=== PATIENT | female | born 1970 | race Caucasian/White ===

== ENCOUNTER 2017-05-22 21:04 | Inpatient (IN) | payer MEDICAID ==
[~2017-05-22] VITALS: Ht 162.6 cm; Wt 81.7 kg
[~2017-05-22 21:04] MED LIST: AMLO5TAB2 PO; AMOX1TAB12 PO; ATOR20TA9 PO; CEFD300C37 PO; DIVA250T6 PO; LISI-167 PO; LISI40TA PO; LITH300C PO; LORA10TA62 PO; LORA2TAB99 PO; METF500T4 PO; METO25TA35 PO; SULF1TAB24 PO; TRAZ100T15 PO; VENL150C PO
[2017-05-22] MEDS ORDERED: LABETALOL 5MG/ML, 20ML IVPush PRN (22:00)
[2017-05-22] MEDS ORDERED: LABETALOL 5MG/ML, 20ML ONE (22:07)
[2017-05-22 22:20] LABS: DAU SCREEN DISCLAIMER
[2017-05-22 22:23] LABS: HEMATOCRIT 41.6 % (34.6-47.8); HEMOGLOBIN 14.2 g/dL (11.7-16.4); WHITE BLOOD COUNT 9.8 x10^3/uL (3.4-10)
[2017-05-22] MEDS ORDERED: ACETAMINOPHEN 650 MG/20.3 ML UDC PO PRN (22:30)
[2017-05-22] MEDS ORDERED: morphine SULFATE 10 MG/ML, 1ML IVPush PRN (22:30)
[2017-05-22] MEDS ORDERED: LORazepam 2 MG/ML, 1ML IVPush PRN (22:30)
[2017-05-22] MEDS ORDERED: ONDANSETRON 2MG/ML, 2ML IVPush PRN (22:30)
[2017-05-22 22:31] LABS: BLOOD UREA NITROGEN 30 mg/dL (7-18)
[2017-05-22 22:38] LABS: ASPARTATE AMINO TRANSFERASE 31 U/L (15-37)
[2017-05-22 22:41] LABS: IS PT STATUS REG ER OR PRE ER? YES
[2017-05-22] MEDS ORDERED: ASPIRIN 325 MG TABLET PO ONE (23:00)
[2017-05-22 23:35] VITALS: BP 182/110
[2017-05-22] MEDS: LABETALOL 5MG/ML, 20ML IV PRN (23:57)
[2017-05-22] MEDS: FAMOTIDINE 20 MG/2 ML IVPush SCH (23:57)
[2017-05-23] VITALS (8 sets, daily range): BP systolic 146–199; BP diastolic 84–116
[2017-05-23] MEDS: LABETALOL 5MG/ML, 20ML IV PRN ×3 (00:44→21:14)
[2017-05-23] MEDS: ASPIRIN 325 MG TABLET EC PO SCH (05:50)
[2017-05-23 08:35] LABS: IS PT STATUS REG ER OR PRE ER? NO
[2017-05-23] MEDS ORDERED: POTASSIUM CHLORIDE 20 MEQ TAB.ER.PRT PO ONE (09:00)
[2017-05-23] MEDS: INSULIN ASPART 100 UNITS/ML, PEN SQ-INSULIN SCH ×4 (10:15→21:13)
[2017-05-23] MEDS ORDERED: GADOBUTROL 10 MMOL/10 ML VIAL ONE (11:14)
[2017-05-23] MEDS ORDERED: SODIUM CHLORIDE 0.9% 1,000 ML IV SCH (12:00)
[2017-05-23] MEDS: LISINOPRIL 5 MG TABLET PO SCH (12:59)
[2017-05-23 13:29] LABS: IS PT STATUS REG ER OR PRE ER? NO
[2017-05-23] MEDS ORDERED: METOPROLOL TARTRATE 25 MG TABLET PO SCH (18:00)
[2017-05-23] MEDS: HEPARIN 5,000 UNITS/ML, 1ML SQ SCH ×2 (18:11→22:00)
[2017-05-23] MEDS ORDERED: ONDANSETRON 2MG/ML, 2ML IVPush PRN (19:00)
[2017-05-23] MEDS: ATORVASTATIN 80 MG TABLET PO SCH (21:12)
[2017-05-23] MEDS: FAMOTIDINE 20 MG/2 ML IVPush SCH (21:13)
[2017-05-24] MEDS: LABETALOL 5MG/ML, 20ML IV PRN ×2 (01:10→01:54)
[2017-05-24 01:14] VITALS: BP_SYST 191; BP_SYST 209; BP_DIAS 107; BP_DIAS 114
[2017-05-24 01:53] VITALS: BP 166/103
[2017-05-24 05:11] LABS: HEMATOCRIT 40.3 % (34.6-47.8); HEMOGLOBIN 13.7 g/dL (11.7-16.4); WHITE BLOOD COUNT 9.2 x10^3/uL (3.4-10)
[2017-05-24] MEDS: ASPIRIN 325 MG TABLET EC PO SCH (05:19)
[2017-05-24] MEDS: HEPARIN 5,000 UNITS/ML, 1ML SQ SCH ×3 (05:19→20:45)
[2017-05-24 05:21] LABS: ASPARTATE AMINO TRANSFERASE 21 U/L (15-37); BLOOD UREA NITROGEN 23 mg/dL (7-18)
[2017-05-24 07:32] VITALS: BP 168/109
[2017-05-24] MEDS: LORazepam 2 MG/ML, 1ML IVPush PRN ×3 (08:35→20:44)
[2017-05-24] MEDS: LISINOPRIL 5 MG TABLET PO SCH (08:36)
[2017-05-24] MEDS: METOPROLOL TARTRATE 25 MG TABLET PO SCH ×2 (08:36→16:26)
[2017-05-24] MEDS: INSULIN ASPART 100 UNITS/ML, PEN SQ-INSULIN SCH ×4 (09:17→20:45)
[2017-05-24 12:14] VITALS: BP 174/107
[2017-05-24] MEDS ORDERED: ACETAMINOPHEN 650 MG/20.3 ML UDC PO PRN (19:30)
[2017-05-24] MEDS ORDERED: ONDANSETRON 2MG/ML, 2ML IVPush PRN (19:30)
[2017-05-24 20:00] VITALS: BP 179/117
[2017-05-24 20:20] VITALS: BP 142/59
[2017-05-24] MEDS: FAMOTIDINE 20 MG/2 ML IVPush SCH (20:44)
[2017-05-24] MEDS: ATORVASTATIN 80 MG TABLET PO SCH (20:44)
[2017-05-25 05:34] LABS: BLOOD UREA NITROGEN 16 mg/dL (7-18)
[2017-05-25 06:45] VITALS: BP 192/131
[2017-05-25 07:20] VITALS: BP 178/133
[2017-05-25 07:25] VITALS: BP 203/131
[2017-05-25] MEDS: ASPIRIN 325 MG TABLET EC PO SCH (08:12)
[2017-05-25] MEDS: METOPROLOL TARTRATE 25 MG TABLET PO SCH (08:12)
[2017-05-25] MEDS: HEPARIN 5,000 UNITS/ML, 1ML SQ SCH (08:12)
[2017-05-25] MEDS: INSULIN ASPART 100 UNITS/ML, PEN SQ-INSULIN SCH (08:12)
[2017-05-25] MEDS ORDERED: LISINOPRIL 10 MG TABLET PO SCH (09:00)
[2017-05-25] MEDS: LORazepam 2 MG/ML, 1ML IVPush PRN (09:19)
[2017-05-27 19:08] LABS: ANA SCREEN NEGATIVE (Negative)
== END 2017-05-25 12:16 | disposition left against medical advice (07) | DRG 65 ==
LOC: ED 22:23 → EDIP 22:25 → 4EST 23:27
PROVIDERS: ADMIT Family Medicine; ATTEND Family Medicine
DX: I63.512 Cerebral infarction due to unspecified occlusion or stenosis of left middle cerebral artery (principal); E44.0 Moderate protein-calorie malnutrition; E11.21 Type 2 diabetes mellitus with diabetic nephropathy; E11.40 Type 2 diabetes mellitus with diabetic neuropathy, unspecified; E11.22 Type 2 diabetes mellitus with diabetic chronic kidney disease; F15.20 Other stimulant dependence, uncomplicated; I16.1 Hypertensive emergency; E11.65 Type 2 diabetes mellitus with hyperglycemia; E78.5 Hyperlipidemia, unspecified; E87.6 Hypokalemia; F17.200 Nicotine dependence, unspecified, uncomplicated; I12.9 Hypertensive chronic kidney disease with stage 1 through stage 4 chronic kidney disease, or unspecified chronic kidney disease; I70.0 Atherosclerosis of aorta; J32.0 Chronic maxillary sinusitis; F32.9 Major depressive disorder, single episode, unspecified; N18.3 Chronic kidney disease, stage 3 (moderate); R29.701 NIHSS score 1; Z86.73 Personal history of transient ischemic attack (TIA), and cerebral infarction without residual deficits; Z90.710 Acquired absence of both cervix and uterus; Z68.30 Body mass index [BMI] 30.0-30.9, adult; Z91.14 Patient's other noncompliance with medication regimen; Z80.9 Family history of malignant neoplasm, unspecified
CPT/HCPCS: 36415; 70450; 70544; 70547; 70551; 71010; 80048; 80053; 80061; 80307; 81241; 82962; 83036; 83090; 84484; 85025; 85300; 85303; 85306; 85651; 86038; 86140; 86147; 93005; 93306; 93880; 96374; A9585; J1644; J1815; 92523-GN; G0479; J2060; J7030; S0028

== ENCOUNTER 2017-05-25 13:47 | Emergency (ER) | payer MEDICAID ==
[2017-05-25 14:37] VITALS: BP 176/112
== END 2017-05-25 16:09 | disposition home or self-care (01) ==
LOC: ED 14:09
DX: F10.220 Alcohol dependence with intoxication, uncomplicated (principal); I10 Essential (primary) hypertension; F32.9 Major depressive disorder, single episode, unspecified; E11.9 Type 2 diabetes mellitus without complications; Z86.73 Personal history of transient ischemic attack (TIA), and cerebral infarction without residual deficits
CPT/HCPCS: 99283

== ENCOUNTER 2017-05-29 17:45 | Inpatient (IN) | payer MEDICAID ==
[~2017-05-29] VITALS: Ht 162.6 cm; Wt 75.0 kg
[2017-05-29] MEDS ORDERED: SODIUM CHLORIDE 0.9% 1,000ML IVBOLUS ONE (18:00)
[2017-05-29] MEDS ORDERED: ASPIRIN 81 MG TABLET CHEW PO ONE ×2 (18:00→19:00)
[2017-05-29] MEDS ORDERED: SODIUM CHLORIDE FLUSH 10ML SYR IVF ONE ×2 (18:00→18:30)
[2017-05-29] MEDS ORDERED: LORazepam 1MG TABLET PO ONE (18:00)
[2017-05-29 18:25] LABS: HEMATOCRIT 42.9 % (34.6-47.8); HEMOGLOBIN 14.4 g/dL (11.7-16.4)
[2017-05-29] MEDS ORDERED: LABETALOL 5MG/ML, 20ML IVPush ONE (18:30)
[2017-05-29] MEDS ORDERED: NITROGLYCERIN OINT 2%, 1GM TP ONE ×2 (18:30→18:45)
[2017-05-29 18:34] LABS: ASPARTATE AMINO TRANSFERASE 34 U/L (15-37); BLOOD UREA NITROGEN 18 mg/dL (7-18)
[2017-05-29 18:42] LABS: IS PT STATUS REG ER OR PRE ER? YES
[2017-05-29] MEDS ORDERED: LABETALOL 5MG/ML, 20ML ONE (18:45)
[2017-05-29] MEDS ORDERED: ASPIRIN 81 MG TABLET CHEW ONE (18:45)
[2017-05-29] MEDS ORDERED: LORazepam 1MG TABLET ONE (18:53)
[2017-05-29 19:29] LABS: DAU SCREEN DISCLAIMER
[2017-05-29] MEDS ORDERED: SODIUM CHLORIDE 0.9% 1,000 ML IV SCH (20:01)
[2017-05-29] MEDS ORDERED: DEXTROSE 4 GM TAB.CHEW PO PRN (20:30)
[2017-05-29] MEDS ORDERED: hydrALAzine 20 MG/ML, 1ML IVPush PRN (20:30)
[2017-05-29] MEDS ORDERED: DEXTROSE 50%, 50ML SYRINGE IVPush PRN (20:30)
[2017-05-29] MEDS ORDERED: ACETAMINOPHEN 325 MG TABLET PO PRN (20:30)
[2017-05-29] MEDS ORDERED: LORazepam 1MG TABLET PO PRN (20:30)
[2017-05-29] MEDS ORDERED: NITROGLYCERIN 0.4 MG BOTTLE (25 TABS) SL PRN (20:30)
[2017-05-29] MEDS ORDERED: NICOTINE 21 MG/24 HR PATCH.TD24 TD SCH (20:30)
[2017-05-29] MEDS ORDERED: ONDANSETRON 2MG/ML, 2ML IVPush PRN (20:30)
[2017-05-29] MEDS ORDERED: GLUCAGON 1 MG IM PRN (20:30)
[2017-05-29] MEDS ORDERED: ENALAPRILAT 1.25 MG/ML, 2ML IVPush PRN (20:30)
[2017-05-29 21:00] VITALS: BP 164/91
[2017-05-29] MEDS ORDERED: SODIUM CHLORIDE FLUSH 10ML SYR IVF SCH (21:00)
[2017-05-29] MEDS ORDERED: ATORVASTATIN 40 MG TABLET PO SCH (21:00)
[2017-05-29] MEDS ORDERED: HYDR25TA6 PO (21:22)
[2017-05-29] MEDS ORDERED: LISI40TA PO (21:24)
[2017-05-29] MEDS ORDERED: METO50TA3 PO (21:24)
[2017-05-29] MEDS ORDERED: AMLO10TA4 PO (21:25)
[2017-05-29] MEDS ORDERED: METF10002 PO (21:26)
[2017-05-29] MEDS ORDERED: ALPR1TAB2 PO (21:27)
[2017-05-29] MEDS ORDERED: CLON0.1T PO (21:27)
[2017-05-29] MEDS ORDERED: DIVA500T4 PO (21:29)
[2017-05-29] MEDS ORDERED: QUET400T4 PO ×2 (21:29→21:30)
[2017-05-29] MEDS ORDERED: TRAZ300T2 PO (21:29)
[2017-05-29] MEDS ORDERED: LABETALOL 100 MG TABLET PO SCH (22:00)
[2017-05-29 23:45] LABS: IS PT STATUS REG ER OR PRE ER? NO
[2017-05-30 02:14] VITALS: BP 162/95
[2017-05-30] MEDS ORDERED: ASPIRIN 325 MG TABLET EC PO SCH (06:00)
[2017-05-30 06:16] LABS: ASPARTATE AMINO TRANSFERASE 30 U/L (15-37); BLOOD UREA NITROGEN 22 mg/dL (7-18)
[2017-05-30 06:18] LABS: IS PT STATUS REG ER OR PRE ER? NO
[2017-05-30 06:45] LABS: HEMATOCRIT 38.6 % (34.6-47.8); WHITE BLOOD COUNT 9.2 x10^3/uL (3.4-10)
== END 2017-05-30 08:00 | disposition left against medical advice (07) | DRG 281 ==
LOC: SUATTDRO 19:46 → ED 19:57 → EDIP 21:06 → 5SO 21:07
PROVIDERS: ADMIT Hospitalist; ATTEND Hospitalist
DX: I21.4 Non-ST elevation (NSTEMI) myocardial infarction (principal); I16.9 Hypertensive crisis, unspecified; N17.9 Acute kidney failure, unspecified; E11.65 Type 2 diabetes mellitus with hyperglycemia; I11.0 Hypertensive heart disease with heart failure; I50.32 Chronic diastolic (congestive) heart failure; Z53.21 Procedure and treatment not carried out due to patient leaving prior to being seen by health care provider; F15.90 Other stimulant use, unspecified, uncomplicated; F17.210 Nicotine dependence, cigarettes, uncomplicated; Z79.82 Long term (current) use of aspirin; Z86.73 Personal history of transient ischemic attack (TIA), and cerebral infarction without residual deficits; Z91.19 Patient's noncompliance with other medical treatment and regimen
CPT/HCPCS: 36415; 70450; 71010; 80053; 80061; 80307; 83735; 84100; 84443; 84484; 84703; 85025; 85610; 93005; 96361; 96374; G0479; J7030

== ENCOUNTER 2017-06-06 23:30 | Emergency (ER) | payer MEDICAID ==
[~2017-06-06] VITALS: Ht 167.6 cm; Wt 79.3 kg
[~2017-06-06 23:30] MED LIST changes: +ALPR1TAB2 PO; +AMLO10TA4 PO; +CLON0.1T PO; +DIVA500T4 PO; +HYDR25TA6 PO; +METF10002 PO; +METO50TA3 PO; +QUET400T4 PO; +TRAZ300T2 PO
[2017-06-06 23:32] VITALS: BP 191/114
== END 2017-06-06 23:42 | disposition left against medical advice (07) ==
LOC: ED 23:36
DX: I10 Essential (primary) hypertension (principal); Z53.21 Procedure and treatment not carried out due to patient leaving prior to being seen by health care provider

== ENCOUNTER 2017-06-16 08:33 | Inpatient (IN) | payer MEDICAID ==
[2017-06-16] VITALS (9 sets, daily range): BP systolic 131–204; BP diastolic 79–131
[~2017-06-16] VITALS: Ht 165.1 cm; Wt 79.1 kg
[~2017-06-16 08:33] MED LIST changes: -METO50TA3 PO; +METO50TA6 PO
[2017-06-16] MEDS ORDERED: ASPIRIN 81 MG TABLET CHEW PO ONE (09:30)
[2017-06-16] MEDS ORDERED: LABETALOL 5MG/ML, 20ML IVPush ONE (09:30)
[2017-06-16] MEDS ORDERED: SODIUM CHLORIDE FLUSH 10ML SYR IVF ONE (09:30)
[2017-06-16 09:36] LABS: HEMATOCRIT 43.3 % (34.6-47.8); HEMOGLOBIN 14.4 g/dL (11.7-16.4); WHITE BLOOD COUNT 8.6 x10^3/uL (3.4-10)
[2017-06-16] MEDS ORDERED: LABETALOL 5MG/ML, 20ML ONE (09:43)
[2017-06-16] MEDS ORDERED: ASPIRIN 81 MG TABLET CHEW ONE (09:43)
[2017-06-16 09:49] LABS: BLOOD UREA NITROGEN 10 mg/dL (7-18)
[2017-06-16 09:54] LABS: IS PT STATUS REG ER OR PRE ER? YES
[2017-06-16] MEDS ORDERED: SODIUM CHLORIDE FLUSH 10ML SYR IVF PRN (11:00)
[2017-06-16] MEDS ORDERED: FLU VACC QS2017-18 (36MOS+) UP/PF 0.5 ML IM-VACC ONE (12:00)
[2017-06-16] MEDS: hydrALAzine 20 MG/ML, 1ML IV PRN (14:58)
[2017-06-16] MEDS ORDERED: LABETALOL 5MG/ML, 20ML IVPush PRN (17:00)
[2017-06-16] MEDS ORDERED: ONDANSETRON 2MG/ML, 2ML IVPush PRN (17:00)
[2017-06-16] MEDS: CARVEDILOL 25 MG TABLET PO SCH (17:11)
[2017-06-16] MEDS: ACETAMINOPHEN 325 MG TABLET PO PRN (17:11)
[2017-06-16] MEDS: LORazepam 1MG TABLET PO PRN (17:11)
[2017-06-16 17:43] LABS: IS PT STATUS REG ER OR PRE ER? NO
[2017-06-16] MEDS: INSULIN ASPART 100 UNITS/ML, PEN SQ-INSULIN SCH ×2 (18:04→20:18)
[2017-06-16] MEDS ORDERED: NITROGLYCERIN 0.4 MG BOTTLE (25 TABS) SL PRN (18:30)
[2017-06-16] MEDS ORDERED: NICOTINE 21 MG/24 HR PATCH.TD24 TD ONE (18:30)
[2017-06-16] MEDS: LISINOPRIL 20 MG TABLET PO SCH (20:12)
[2017-06-16] MEDS: OXYcodone IR 5MG TABLET PO PRN (20:12)
[2017-06-16] MEDS: MINERA CRM, 60GM TP SCH (20:19)
[2017-06-16 22:48] LABS: IS PT STATUS REG ER OR PRE ER? NO
[2017-06-17 01:49] VITALS: BP 144/90
[2017-06-17] MEDS: OXYcodone IR 5MG TABLET PO PRN ×4 (01:54→20:26)
[2017-06-17] MEDS: CARVEDILOL 25 MG TABLET PO SCH ×2 (06:28→17:00)
[2017-06-17 08:19] VITALS: BP 156/86
[2017-06-17] MEDS: LISINOPRIL 20 MG TABLET PO SCH ×2 (08:21→20:26)
[2017-06-17] MEDS: INSULIN ASPART 100 UNITS/ML, PEN SQ-INSULIN SCH ×4 (08:21→20:34)
[2017-06-17] MEDS: MINERA CRM, 60GM TP SCH ×2 (08:30→20:25)
[2017-06-17 13:45] VITALS: BP 137/86
[2017-06-17 19:11] VITALS: BP 170/108
[2017-06-17 20:30] VITALS: BP 154/69
[2017-06-18] VITALS (12 sets, daily range): BP systolic 133–189; BP diastolic 81–124
[2017-06-18] MEDS: hydrALAzine 20 MG/ML, 1ML IV PRN ×2 (00:46→12:35)
[2017-06-18] MEDS: OXYcodone IR 5MG TABLET PO PRN ×4 (02:02→21:46)
[2017-06-18] MEDS: CARVEDILOL 25 MG TABLET PO SCH ×2 (06:19→16:27)
[2017-06-18] MEDS: LISINOPRIL 20 MG TABLET PO SCH ×2 (08:36→20:27)
[2017-06-18] MEDS: MINERA CRM, 60GM TP SCH ×2 (08:37→20:27)
[2017-06-18] MEDS: INSULIN ASPART 100 UNITS/ML, PEN SQ-INSULIN SCH ×4 (08:44→20:28)
[2017-06-18] MEDS: ACETAMINOPHEN 325 MG TABLET PO PRN (12:07)
[2017-06-18] MEDS ORDERED: LABETALOL 5MG/ML, 20ML IVPush PRN (17:00)
[2017-06-18] MEDS ORDERED: hydrALAzine 20 MG/ML, 1ML IV PRN (18:00)
[2017-06-18] MEDS: LORazepam 1MG TABLET PO PRN (20:27)
[2017-06-19 04:00] VITALS: BP_SYST 163; BP_SYST 165; BP_SYST 169; BP_DIAS 93; BP_DIAS 95; BP_DIAS 98
[2017-06-19] MEDS: CARVEDILOL 25 MG TABLET PO SCH ×2 (05:05→17:02)
[2017-06-19 05:59] LABS: BLOOD UREA NITROGEN 28 mg/dL (7-18)
[2017-06-19 06:04] LABS: ASPARTATE AMINO TRANSFERASE 25 U/L (15-37)
[2017-06-19 08:28] VITALS: BP 146/101
[2017-06-19 08:29] VITALS: BP 153/102
[2017-06-19] MEDS: MINERA CRM, 60GM TP SCH ×2 (09:00→20:39)
[2017-06-19] MEDS: LISINOPRIL 20 MG TABLET PO SCH ×2 (09:15→20:35)
[2017-06-19] MEDS: INSULIN ASPART 100 UNITS/ML, PEN SQ-INSULIN SCH ×4 (09:16→20:36)
[2017-06-19 14:14] VITALS: BP 147/91
[2017-06-19] MEDS ORDERED: LISI-170 PO (17:01)
[2017-06-19] MEDS ORDERED: ASPI325T17 PO (17:01)
[2017-06-19] MEDS ORDERED: CARV25TA12 PO (17:01)
[2017-06-19] MEDS: LORazepam 1MG TABLET PO PRN (18:07)
[2017-06-19] MEDS ORDERED: NICOTINE 14MG/24 HR PATCH.TD24 TD SCH (18:30)
[2017-06-19 20:00] VITALS: BP 153/85
[2017-06-19] MEDS: OXYcodone IR 5MG TABLET PO PRN (20:35)
[2017-06-20 04:00] VITALS: BP 155/92
[2017-06-20 06:16] VITALS: BP 155/93
[2017-06-20] MEDS: CARVEDILOL 25 MG TABLET PO SCH (06:17)
[2017-06-20] MEDS: LISINOPRIL 20 MG TABLET PO SCH (08:28)
[2017-06-20] MEDS: INSULIN ASPART 100 UNITS/ML, PEN SQ-INSULIN SCH (08:28)
[2017-06-20] MEDS: MINERA CRM, 60GM TP SCH (08:29)
== END 2017-06-20 10:40 | disposition left against medical advice (07) | DRG 305 ==
LOC: ED 10:48 → EDIP 10:55 → 5SO 11:51
PROVIDERS: ADMIT Internal Medicine; ATTEND Internal Medicine
DX: I16.0 Hypertensive urgency (principal); E11.22 Type 2 diabetes mellitus with diabetic chronic kidney disease; E11.40 Type 2 diabetes mellitus with diabetic neuropathy, unspecified; I42.9 Cardiomyopathy, unspecified; I69.351 Hemiplegia and hemiparesis following cerebral infarction affecting right dominant side; N18.3 Chronic kidney disease, stage 3 (moderate); Z53.21 Procedure and treatment not carried out due to patient leaving prior to being seen by health care provider; E11.65 Type 2 diabetes mellitus with hyperglycemia; E78.5 Hyperlipidemia, unspecified; F15.10 Other stimulant abuse, uncomplicated; F17.200 Nicotine dependence, unspecified, uncomplicated; I12.9 Hypertensive chronic kidney disease with stage 1 through stage 4 chronic kidney disease, or unspecified chronic kidney disease; Z90.710 Acquired absence of both cervix and uterus; Z91.19 Patient's noncompliance with other medical treatment and regimen; I25.2 Old myocardial infarction; Z23 Encounter for immunization
CPT/HCPCS: 36415; 71010; 80048; 80053; 82040; 82962; 83735; 84484; 85025; 90686; 93005; 96374; J1815; J0360

== ENCOUNTER 2017-07-03 01:14 | Emergency (ER) | payer MEDICAID ==
[~2017-07-03] VITALS: Ht 165.1 cm; Wt 78.4 kg
[~2017-07-03 01:14] MED LIST changes: +ASPI325T17 PO; +CARV25TA12 PO; +LISI-170 PO
[2017-07-03 02:00] LABS: BASOPHILS # (AUTO) 0.06 x10^3/uL (0-0.1); BASOPHILS % (AUTO) 1 % (0-1); EOSINOPHILS # (AUTO) 0.16 x10^3/uL (0-0.4); EOSINOPHILS % (AUTO) 2 % (1-7); LYMPHOCYTES # (AUTO) 3.31 x10^3/uL (1-3.4); LYMPHOCYTES % (AUTO) 34 % (22-44); MD NO; MEAN CORPUSCULAR HGB CONC 33.4 g/dL (32.4-35.8); MEAN CORPUSCULAR VOLUME 92.9 fL (80-100); MEAN PLATELET VOLUME 11.2 fL (7.4-10.4); MONOCYTES # (AUTO) 0.83 x10^3/uL (0.2-0.8); MONOCYTES % (AUTO) 8 % (2-9); NEUTROPHILS # (AUTO) 5.52 x10^3/uL (1.8-6.8); NEUTROPHILS % (AUTO) 56 % (42-75); PLATELET COUNT 219 x10^3/uL (130-400); RED BLOOD COUNT 4.23 x10^6/uL (3.82-5.3); RED CELL DISTRIBUTION WIDTH 13.9 % (9.6-15.2)
[2017-07-03 02:10] LABS: ALBUMIN 3.2 g/dL (3.4-5.0); ANION GAP 11 mmol/L (5-15); CALCIUM 8.6 mg/dL (8.5-10.1); CHLORIDE 107 mmol/L (98-107); CREATININE 1.43 mg/dL (0.55-1.02)
[2017-07-03 03:20] VITALS: BP 182/106
== END 2017-07-03 03:34 | disposition home or self-care (01) ==
LOC: ED 01:56
DX: I10 Essential (primary) hypertension (principal); Z76.0 Encounter for issue of repeat prescription; F15.10 Other stimulant abuse, uncomplicated; I25.2 Old myocardial infarction; E11.65 Type 2 diabetes mellitus with hyperglycemia
CPT/HCPCS: 36415; 71045; 80048; 82040; 85025; 93005; 99285

== ENCOUNTER 2017-07-27 08:37 | Observation (INO) | payer MEDICAID ==
[~2017-07-27] VITALS: Ht 165.1 cm; Wt 76.9 kg
[2017-07-27] MEDS ORDERED: ATOR80TA PO (09:02)
[2017-07-27] MEDS ORDERED: METO25TA35 PO (09:02)
[2017-07-27] MEDS ORDERED: AMLO5TAB2 PO (09:02)
[2017-07-27] MEDS ORDERED: LITH150C PO (09:02)
[2017-07-27 09:26] LABS: ALBUMIN 3.4 g/dL (3.4-5.0); ANION GAP 8 mmol/L (5-15); CALCIUM 8.9 mg/dL (8.5-10.1); CHLORIDE 105 mmol/L (98-107); CREATININE 1.28 mg/dL (0.55-1.02); SALICYLATE LEVEL 3.3 mg/dL (2.8-20.0)
[2017-07-27 09:35] LABS: ACETAMINOPHEN < 2 mcg/mL (10-30)
[2017-07-27 09:36] LABS: BASOPHILS # (AUTO) 0.08 x10^3/uL (0-0.1); BASOPHILS % (AUTO) 1 % (0-1); EOSINOPHILS % (AUTO) 2 % (1-7); LYMPHOCYTES # (AUTO) 2.42 x10^3/uL (1-3.4); LYMPHOCYTES % (AUTO) 25 % (22-44); MD NO; MEAN CORPUSCULAR HEMOGLOBIN 30.7 pg (27.0-34.8); MEAN CORPUSCULAR HGB CONC 33.4 g/dL (32.4-35.8); MEAN CORPUSCULAR VOLUME 92.1 fL (80-100); MEAN PLATELET VOLUME 11.2 fL (7.4-10.4); MONOCYTES % (AUTO) 5 % (2-9); NEUTROPHILS # (AUTO) 6.68 x10^3/uL (1.8-6.8); NEUTROPHILS % (AUTO) 68 % (42-75); PLATELET COUNT 226 x10^3/uL (130-400); RED BLOOD COUNT 4.53 x10^6/uL (3.82-5.3)
[2017-07-27 09:39] LABS: CULTURE INDICATED? YES; MICROSCOPIC INDICATED
[2017-07-27 09:45] LABS: AMPHETAMINE SCREEN, URINE Positive (Negative); BARBITURATE SCREEN, URINE Negative (Negative); BENZODIAZEPINE SCREEN, URINE Negative (Negative); CANNABINOID SCREEN, URINE Negative (Negative); COCAINE SCREEN, URINE Negative (Negative); METHADONE SCREEN, URINE Negative (Negative); OPIATE SCREEN, URINE Negative (Negative)
[2017-07-27] MEDS ORDERED: LISINOPRIL 20 MG TABLET PO ONE (12:30)
[2017-07-27] MEDS ORDERED: AMLODIPINE 5 MG TABLET PO ONE (12:30)
[2017-07-27] MEDS ORDERED: LISINOPRIL 20 MG TABLET ONE ×2 (13:59→22:45)
[2017-07-27] MEDS ORDERED: ACETAMINOPHEN 325 MG TABLET ONE (17:15)
[2017-07-27] MEDS: NICOTINE 14MG/24 HR PATCH.TD24 TD SCH (17:30)
[2017-07-27] MEDS ORDERED: ONDANSETRON ODT 4 MG PO PRN (17:30)
[2017-07-27] MEDS ORDERED: ACETAMINOPHEN 325 MG TABLET PO ONE (17:30)
[2017-07-27] MEDS ORDERED: LORazepam 2 MG/ML, 1ML IM PRN (17:30)
[2017-07-27] MEDS ORDERED: LORazepam 1MG TABLET ONE (17:46)
[2017-07-27] MEDS: LORazepam 1MG TABLET PO PRN (17:48)
[2017-07-27] MEDS ORDERED: METOPROLOL TARTRATE 25 MG TABLET PO SCH (21:00)
[2017-07-27] MEDS ORDERED: ATORVASTATIN 80 MG TABLET PO SCH (21:00)
[2017-07-27] MEDS ORDERED: METOPROLOL TARTRATE 25 MG TABLET ONE (22:46)
[2017-07-27] MEDS: LISINOPRIL 20 MG TABLET PO SCH (23:33)
[2017-07-28] MEDS ORDERED: METOPROLOL TARTRATE 50 MG TABLET ONE (12:11)
[2017-07-28] MEDS ORDERED: LORazepam 1MG TABLET ONE (12:12)
[2017-07-28] MEDS: FLUOXETINE HCL 20 MG/5 ML ORAL.SOL PO SCH (12:32)
[2017-07-28] MEDS: NICOTINE 14MG/24 HR PATCH.TD24 TD SCH (12:32)
[2017-07-28] MEDS: LISINOPRIL 20 MG TABLET PO SCH ×2 (12:32→20:35)
[2017-07-28] MEDS: AMLODIPINE 5 MG TABLET PO SCH (12:32)
[2017-07-28] MEDS: OLANZAPINE 2.5 MG TABLET PO SCH (12:35)
[2017-07-28] MEDS ORDERED: METOPROLOL TARTRATE 25 MG TABLET ONE (19:19)
[2017-07-28 20:33] VITALS: BP 164/115
[2017-07-28] MEDS: ATORVASTATIN 40 MG TABLET PO SCH (20:36)
[2017-07-28] MEDS: METOPROLOL TARTRATE 50 MG TABLET PO SCH (20:37)
[2017-07-28 22:50] VITALS: BP 159/93
[2017-07-29] MEDS: ACETAMINOPHEN 325 MG TABLET PO PRN (01:20)
[2017-07-29] MEDS: LORazepam 1MG TABLET PO PRN ×3 (01:21→15:59)
[2017-07-29 07:22] VITALS: BP 162/107
[2017-07-29] MEDS: AMLODIPINE 5 MG TABLET PO SCH ×3 (08:14→21:03)
[2017-07-29] MEDS: OLANZAPINE 2.5 MG TABLET PO SCH (08:14)
[2017-07-29] MEDS: FLUOXETINE HCL 20 MG/5 ML ORAL.SOL PO SCH (08:14)
[2017-07-29] MEDS: LISINOPRIL 20 MG TABLET PO SCH ×2 (08:15→21:03)
[2017-07-29] MEDS: METOPROLOL TARTRATE 50 MG TABLET PO SCH ×2 (08:15→21:03)
[2017-07-29 16:32] LABS: HEMOGLOBIN A1C 8.1 % (4.2-6.3)
[2017-07-29] MEDS ORDERED: metFORMIN 500 MG TABLET PO SCH (17:00)
[2017-07-29] MEDS: NICOTINE 14MG/24 HR PATCH.TD24 TD SCH (17:01)
[2017-07-29 19:27] VITALS: BP 156/100
[2017-07-29] MEDS: ATORVASTATIN 40 MG TABLET PO SCH (21:03)
[2017-07-30] MEDS: LORazepam 1MG TABLET PO PRN ×3 (01:07→17:44)
[2017-07-30 06:15] LABS: CHLORIDE 106 mmol/L (98-107)
[2017-07-30 06:22] LABS: ALANINE AMINOTRANSFERASE 24 U/L (12-78); ALBUMIN 3.2 g/dL (3.4-5.0); ALKALINE PHOSPHATASE 93 U/L (45-117); ANION GAP 9 mmol/L (5-15); BILIRUBIN,TOTAL 0.2 mg/dL (0.2-1.0); CALCIUM 8.7 mg/dL (8.5-10.1); CREATININE 0.99 mg/dL (0.55-1.02); TOTAL PROTEIN 7.2 g/dL (6.4-8.2)
[2017-07-30 06:31] LABS: HEMOGLOBIN A1C 8.1 % (4.2-6.3)
[2017-07-30 07:10] VITALS: BP 159/111
[2017-07-30] MEDS: LISINOPRIL 20 MG TABLET PO SCH ×2 (08:26→20:28)
[2017-07-30] MEDS: metFORMIN 500 MG TABLET PO SCH ×2 (08:26→16:42)
[2017-07-30] MEDS: FLUOXETINE 10 MG CAP PO SCH (08:26)
[2017-07-30] MEDS: OLANZAPINE 2.5 MG TABLET PO SCH (08:27)
[2017-07-30] MEDS: AMLODIPINE 5 MG TABLET PO SCH ×2 (08:27→20:28)
[2017-07-30] MEDS: METOPROLOL TARTRATE 50 MG TABLET PO SCH ×2 (08:27→20:28)
[2017-07-30] MEDS: HYDROCHLOROTHIAZIDE 25 MG TABLET PO SCH (08:43)
[2017-07-30] MEDS: metroNIDAZOLE 500 MG TABLET PO SCH ×2 (15:18→20:28)
[2017-07-30] MEDS: NICOTINE 14MG/24 HR PATCH.TD24 TD SCH (16:45)
[2017-07-30] MEDS: ACETAMINOPHEN 325 MG TABLET PO PRN (17:44)
[2017-07-30 19:33] VITALS: BP 131/87
[2017-07-30] MEDS: ATORVASTATIN 40 MG TABLET PO SCH (20:28)
[2017-07-31 07:25] VITALS: BP 181/97
[2017-07-31] MEDS: FLUOXETINE 10 MG CAP PO SCH (08:10)
[2017-07-31] MEDS: AMLODIPINE 5 MG TABLET PO SCH ×2 (08:10→19:56)
[2017-07-31] MEDS: HYDROCHLOROTHIAZIDE 25 MG TABLET PO SCH (08:10)
[2017-07-31] MEDS: LISINOPRIL 20 MG TABLET PO SCH ×2 (08:10→19:57)
[2017-07-31] MEDS: metFORMIN 500 MG TABLET PO SCH ×2 (08:10→17:00)
[2017-07-31] MEDS: METOPROLOL TARTRATE 50 MG TABLET PO SCH ×2 (08:10→19:56)
[2017-07-31] MEDS: OLANZAPINE 2.5 MG TABLET PO SCH (08:10)
[2017-07-31] MEDS: metroNIDAZOLE 500 MG TABLET PO SCH ×2 (08:11→19:56)
[2017-07-31] MEDS: LORazepam 1MG TABLET PO PRN ×2 (08:22→17:00)
[2017-07-31] MEDS: NICOTINE 14MG/24 HR PATCH.TD24 TD SCH (17:02)
[2017-07-31 19:48] VITALS: BP 125/78
[2017-07-31] MEDS: ATORVASTATIN 40 MG TABLET PO SCH (21:00)
[2017-08-01 07:59] VITALS: BP 137/89
[2017-08-01] MEDS: metFORMIN 500 MG TABLET PO SCH ×2 (08:32→17:29)
[2017-08-01] MEDS: AMLODIPINE 5 MG TABLET PO SCH ×2 (08:33→20:33)
[2017-08-01] MEDS: metroNIDAZOLE 500 MG TABLET PO SCH ×2 (08:33→20:33)
[2017-08-01] MEDS: METOPROLOL TARTRATE 50 MG TABLET PO SCH ×2 (08:33→20:33)
[2017-08-01] MEDS: HYDROCHLOROTHIAZIDE 25 MG TABLET PO SCH (08:33)
[2017-08-01] MEDS: LISINOPRIL 20 MG TABLET PO SCH ×2 (08:33→20:33)
[2017-08-01] MEDS: OLANZAPINE 2.5 MG TABLET PO SCH (08:34)
[2017-08-01] MEDS: FLUOXETINE 10 MG CAP PO SCH (08:34)
[2017-08-01] MEDS: LORazepam 1MG TABLET PO PRN ×2 (08:39→17:30)
[2017-08-01] MEDS: ACETAMINOPHEN 325 MG TABLET PO PRN (17:29)
[2017-08-01] MEDS: NICOTINE 14MG/24 HR PATCH.TD24 TD SCH (17:30)
[2017-08-01 20:00] VITALS: BP 146/97
[2017-08-01] MEDS: ATORVASTATIN 40 MG TABLET PO SCH (20:33)
[2017-08-02] MEDS: ACETAMINOPHEN 325 MG TABLET PO PRN (02:34)
[2017-08-02] MEDS: LORazepam 1MG TABLET PO PRN ×3 (02:36→20:40)
[2017-08-02 08:00] VITALS: BP 118/82
[2017-08-02] MEDS: metFORMIN 500 MG TABLET PO SCH ×2 (08:00→17:35)
[2017-08-02] MEDS: OLANZAPINE 2.5 MG TABLET PO SCH (08:17)
[2017-08-02] MEDS: FLUOXETINE 10 MG CAP PO SCH (08:17)
[2017-08-02] MEDS: AMLODIPINE 5 MG TABLET PO SCH ×3 (08:18→21:00)
[2017-08-02] MEDS: HYDROCHLOROTHIAZIDE 25 MG TABLET PO SCH (08:18)
[2017-08-02] MEDS: metroNIDAZOLE 500 MG TABLET PO SCH ×3 (08:18→21:00)
[2017-08-02] MEDS: LISINOPRIL 20 MG TABLET PO SCH ×3 (08:18→21:00)
[2017-08-02] MEDS: METOPROLOL TARTRATE 50 MG TABLET PO SCH ×3 (08:18→21:00)
[2017-08-02 09:20] VITALS: BP 124/82
[2017-08-02] MEDS: NICOTINE 14MG/24 HR PATCH.TD24 TD SCH (17:30)
[2017-08-02 19:52] VITALS: BP 136/84
[2017-08-02] MEDS: ATORVASTATIN 40 MG TABLET PO SCH ×2 (20:40→21:00)
[2017-08-03 07:30] VITALS: BP_SYST 141; BP_SYST 145; BP_DIAS 83; BP_DIAS 89
[2017-08-03] MEDS: FLUOXETINE 10 MG CAP PO SCH (08:20)
[2017-08-03] MEDS: AMLODIPINE 5 MG TABLET PO SCH ×2 (08:20→20:20)
[2017-08-03] MEDS: OLANZAPINE 2.5 MG TABLET PO SCH (08:20)
[2017-08-03] MEDS: HYDROCHLOROTHIAZIDE 25 MG TABLET PO SCH (08:20)
[2017-08-03] MEDS: LISINOPRIL 20 MG TABLET PO SCH ×2 (08:20→20:20)
[2017-08-03] MEDS: metFORMIN 500 MG TABLET PO SCH ×2 (08:21→17:06)
[2017-08-03] MEDS: METOPROLOL TARTRATE 50 MG TABLET PO SCH ×2 (08:21→20:20)
[2017-08-03] MEDS: metroNIDAZOLE 500 MG TABLET PO SCH ×2 (08:22→20:20)
[2017-08-03] MEDS: LORazepam 1MG TABLET PO PRN ×2 (12:30→18:03)
[2017-08-03] MEDS: NICOTINE 14MG/24 HR PATCH.TD24 TD SCH (17:30)
[2017-08-03 19:45] VITALS: BP 155/78
[2017-08-03] MEDS: ATORVASTATIN 40 MG TABLET PO SCH (20:20)
[2017-08-04] MEDS: LORazepam 1MG TABLET PO PRN ×2 (04:10→10:56)
[2017-08-04 08:00] VITALS: BP 133/90
[2017-08-04] MEDS: FLUOXETINE 10 MG CAP PO SCH (08:44)
[2017-08-04] MEDS: metroNIDAZOLE 500 MG TABLET PO SCH (08:45)
[2017-08-04] MEDS: OLANZAPINE 2.5 MG TABLET PO SCH (08:45)
[2017-08-04] MEDS: LISINOPRIL 20 MG TABLET PO SCH (08:46)
[2017-08-04] MEDS: AMLODIPINE 5 MG TABLET PO SCH (08:46)
[2017-08-04] MEDS: METOPROLOL TARTRATE 50 MG TABLET PO SCH (08:46)
[2017-08-04] MEDS: HYDROCHLOROTHIAZIDE 25 MG TABLET PO SCH (08:46)
[2017-08-04] MEDS: metFORMIN 500 MG TABLET PO SCH (08:46)
== END 2017-08-04 13:35 ==
LOC: ED 08:49 → INTOOBSV 12:03 → EDIP 12:03 → 2N 07-28 13:59
PROVIDERS: ADMIT Internal Medicine; ATTEND Internal Medicine
DX: R45.851 Suicidal ideations (principal); I12.9 Hypertensive chronic kidney disease with stage 1 through stage 4 chronic kidney disease, or unspecified chronic kidney disease; N18.9 Chronic kidney disease, unspecified; E78.5 Hyperlipidemia, unspecified; F15.90 Other stimulant use, unspecified, uncomplicated; F31.9 Bipolar disorder, unspecified; I25.2 Old myocardial infarction; F17.210 Nicotine dependence, cigarettes, uncomplicated
CPT/HCPCS: 36415; 80048; 80053; 80307; 80329; 81001; 82040; 82962; 83036; 84703; 85025; 87086; 93005; 99285; G0378; G0480

== ENCOUNTER 2017-08-15 00:48 | Inpatient (IN) | payer MEDICAID ==
[~2017-08-15] VITALS: Ht 167.6 cm; Wt 77.0 kg
[~2017-08-15 00:48] MED LIST changes: +ATOR80TA PO; +LITH150C PO
[2017-08-15 01:46] LABS: BASOPHILS # (AUTO) 0.04 x10^3/uL (0-0.1); BASOPHILS % (AUTO) 1 % (0-1); EOSINOPHILS # (AUTO) 0.23 x10^3/uL (0-0.4); EOSINOPHILS % (AUTO) 2 % (1-7); LYMPHOCYTES # (AUTO) 3.14 x10^3/uL (1-3.4); LYMPHOCYTES % (AUTO) 32 % (22-44); MD NO; MEAN CORPUSCULAR HEMOGLOBIN 30.6 pg (27.0-34.8); MEAN CORPUSCULAR HGB CONC 33.7 g/dL (32.4-35.8); MEAN CORPUSCULAR VOLUME 90.9 fL (80-100); MEAN PLATELET VOLUME 10.5 fL (7.4-10.4); MONOCYTES # (AUTO) 0.76 x10^3/uL (0.2-0.8); MONOCYTES % (AUTO) 8 % (2-9); NEUTROPHILS # (AUTO) 5.61 x10^3/uL (1.8-6.8); NEUTROPHILS % (AUTO) 57 % (42-75); PLATELET COUNT 224 x10^3/uL (130-400); RED BLOOD COUNT 4.05 x10^6/uL (3.82-5.3); RED CELL DISTRIBUTION WIDTH 13.5 % (9.6-15.2)
[2017-08-15 01:54] LABS: ALBUMIN 3.2 g/dL (3.4-5.0); ANION GAP 9 mmol/L (5-15); CALCIUM 8.7 mg/dL (8.5-10.1); CHLORIDE 105 mmol/L (98-107); CREATININE 1.43 mg/dL (0.55-1.02)
[2017-08-15] MEDS ORDERED: POTASSIUM CHLORIDE 40 MEQ in SODIUM CHLORIDE 0.9% 500 ML IV ONE (02:30)
[2017-08-15] MEDS ORDERED: POTASSIUM CHLORIDE 20 MEQ TAB.ER.PRT ONE (02:30)
[2017-08-15] MEDS ORDERED: POTASSIUM CHLORIDE 20 MEQ TAB.ER.PRT PO ONE ×2 (02:30→08:30)
[2017-08-15 02:48] LABS: TROPONIN I 0.057 ng/mL (0.000-0.045)
[2017-08-15] MEDS: SODIUM CHLORIDE 0.9% 1,000 ML IV SCH ×2 (05:10→17:41)
[2017-08-15] MEDS ORDERED: OXCA300T PO (05:21)
[2017-08-15] MEDS ORDERED: METF500T4 PO (05:21)
[2017-08-15] MEDS ORDERED: ACETAMINOPHEN 325 MG TABLET PO PRN (05:30)
[2017-08-15] MEDS ORDERED: ONDANSETRON 2MG/ML, 2ML IVPush PRN (05:30)
[2017-08-15] MEDS ORDERED: hydrALAzine 20 MG/ML, 1ML IVPush PRN (05:30)
[2017-08-15] MEDS ORDERED: GLUCAGON 1 MG IM PRN (05:30)
[2017-08-15] MEDS ORDERED: DEXTROSE 50%, 50ML SYRINGE IVPush PRN (05:30)
[2017-08-15] MEDS ORDERED: DEXTROSE 4 GM TAB.CHEW PO PRN (05:30)
[2017-08-15] MEDS: metFORMIN 500 MG TABLET PO SCH ×2 (08:00→17:41)
[2017-08-15 08:56] LABS: TROPONIN I 0.058 ng/mL (0.000-0.045)
[2017-08-15] MEDS: SODIUM CHLORIDE FLUSH 10ML SYR IVF SCH ×2 (09:00→20:50)
[2017-08-15] MEDS: OXCARBAZEPINE 300MG TABLET PO SCH ×2 (09:00→20:49)
[2017-08-15] MEDS: LISINOPRIL 20 MG TABLET PO SCH ×2 (11:06→20:49)
[2017-08-15] MEDS: AMLODIPINE 5 MG TABLET PO SCH (11:06)
[2017-08-15] MEDS: METOPROLOL TARTRATE 50 MG TABLET PO SCH ×2 (11:07→20:49)
[2017-08-15] MEDS: NICOTINE 21 MG/24 HR PATCH.TD24 TD SCH (11:07)
[2017-08-15 11:10] VITALS: BP 175/101
[2017-08-15 13:57] VITALS: BP 151/91
[2017-08-15 14:56] LABS: TROPONIN I 0.064 ng/mL (0.000-0.045)
[2017-08-15 20:27] VITALS: BP_SYST 162; BP_SYST 182; BP_DIAS 108; BP_DIAS 117
[2017-08-15] MEDS: TRAZODONE 150MG TABLET PO SCH (21:00)
[2017-08-16] MEDS: SODIUM CHLORIDE 0.9% 1,000 ML IV SCH (01:01)
[2017-08-16 01:04] VITALS: BP 151/92
[2017-08-16 05:29] LABS: ANION GAP 6 mmol/L (5-15); CALCIUM 8.3 mg/dL (8.5-10.1); CHLORIDE 111 mmol/L (98-107)
[2017-08-16 05:30] LABS: CREATININE 0.99 mg/dL (0.55-1.02)
[2017-08-16] MEDS ORDERED: REGADENOSON 0.4 MG/5 ML SYRINGE ONE (08:22)
[2017-08-16] MEDS: AMLODIPINE 5 MG TABLET PO SCH (08:31)
[2017-08-16] MEDS: LISINOPRIL 20 MG TABLET PO SCH ×2 (08:31→20:09)
[2017-08-16] MEDS: OXCARBAZEPINE 300MG TABLET PO SCH ×2 (08:31→20:09)
[2017-08-16] MEDS: METOPROLOL TARTRATE 50 MG TABLET PO SCH ×2 (08:31→20:09)
[2017-08-16] MEDS: metFORMIN 500 MG TABLET PO SCH ×2 (08:31→16:55)
[2017-08-16] MEDS: NICOTINE 21 MG/24 HR PATCH.TD24 TD SCH (08:32)
[2017-08-16] MEDS: SODIUM CHLORIDE FLUSH 10ML SYR IVF SCH ×2 (08:35→20:09)
[2017-08-16 08:36] VITALS: BP_SYST 128; BP_SYST 185; BP_DIAS 72; BP_DIAS 90
[2017-08-16] MEDS ORDERED: POTASSIUM CHLORIDE 20 MEQ TAB.ER.PRT PO ONE (10:00)
[2017-08-16 13:58] VITALS: BP 149/79
[2017-08-16] MEDS: TRAZODONE 150MG TABLET PO SCH (20:08)
[2017-08-16 20:09] VITALS: BP 172/81
[2017-08-17 00:43] VITALS: BP 150/86
[2017-08-17 07:36] VITALS: BP 153/89
[2017-08-17] MEDS: METOPROLOL TARTRATE 50 MG TABLET PO SCH (09:06)
[2017-08-17] MEDS: AMLODIPINE 5 MG TABLET PO SCH (09:06)
[2017-08-17] MEDS: OXCARBAZEPINE 300MG TABLET PO SCH (09:06)
[2017-08-17] MEDS: LISINOPRIL 20 MG TABLET PO SCH (09:07)
[2017-08-17] MEDS: NICOTINE 21 MG/24 HR PATCH.TD24 TD SCH (09:07)
[2017-08-17] MEDS: SODIUM CHLORIDE FLUSH 10ML SYR IVF SCH (09:08)
[2017-08-17] MEDS: metFORMIN 500 MG TABLET PO SCH (09:11)
== END 2017-08-17 14:14 | disposition home or self-care (01) | DRG 641 ==
LOC: ED 01:19 → EDIP 03:06 → 5SO 10:32
PROVIDERS: ADMIT Hospitalist; ATTEND Hospitalist
DX: E87.6 Hypokalemia (principal); E11.22 Type 2 diabetes mellitus with diabetic chronic kidney disease; E11.40 Type 2 diabetes mellitus with diabetic neuropathy, unspecified; R45.851 Suicidal ideations; N18.3 Chronic kidney disease, stage 3 (moderate); E78.5 Hyperlipidemia, unspecified; F15.90 Other stimulant use, unspecified, uncomplicated; H66.90 Otitis media, unspecified, unspecified ear; F17.210 Nicotine dependence, cigarettes, uncomplicated; F31.9 Bipolar disorder, unspecified; I08.0 Rheumatic disorders of both mitral and aortic valves; I12.9 Hypertensive chronic kidney disease with stage 1 through stage 4 chronic kidney disease, or unspecified chronic kidney disease; I16.0 Hypertensive urgency; I25.2 Old myocardial infarction; Z86.73 Personal history of transient ischemic attack (TIA), and cerebral infarction without residual deficits; Z90.710 Acquired absence of both cervix and uterus; Z91.19 Patient's noncompliance with other medical treatment and regimen; Z79.899 Other long term (current) drug therapy
CPT/HCPCS: 36415; 78452; 80048; 82040; 82962; 83735; 84100; 84132; 84484; 85025; 93005; 93017; 93306; 96365; 96366; J2785; J3480; A9502; C9898; J7030; J7040

== ENCOUNTER 2017-08-31 14:57 | Observation (INO) | payer MEDICAID ==
[~2017-08-31] VITALS: Ht 165.1 cm; Wt 78.0 kg
[~2017-08-31 14:57] MED LIST changes: +OXCA300T PO
[2017-08-31] MEDS ORDERED: LORazepam 1MG TABLET PO ONE (15:30)
[2017-08-31] MEDS ORDERED: ATEN25TA PO (15:36)
[2017-08-31] MEDS ORDERED: FLUO90CA5 PO (15:37)
[2017-08-31] MEDS ORDERED: TRAZ50TA18 PO (15:37)
[2017-08-31] MEDS ORDERED: HYDR12.53 PO (15:38)
[2017-08-31] MEDS ORDERED: LORazepam 1MG TABLET ONE (15:40)
[2017-08-31 16:06] LABS: BASOPHILS # (AUTO) 0.07 x10^3/uL (0-0.1); BASOPHILS % (AUTO) 1 % (0-1); EOSINOPHILS # (AUTO) 0.24 x10^3/uL (0-0.4); EOSINOPHILS % (AUTO) 2 % (1-7); LYMPHOCYTES # (AUTO) 4.24 x10^3/uL (1-3.4); LYMPHOCYTES % (AUTO) 36 % (22-44); MD NO; MEAN CORPUSCULAR HEMOGLOBIN 30.5 pg (27.0-34.8); MEAN CORPUSCULAR HGB CONC 33.6 g/dL (32.4-35.8); MEAN CORPUSCULAR VOLUME 90.9 fL (80-100); MONOCYTES # (AUTO) 0.81 x10^3/uL (0.2-0.8); MONOCYTES % (AUTO) 7 % (2-9); NEUTROPHILS # (AUTO) 6.41 x10^3/uL (1.8-6.8); NEUTROPHILS % (AUTO) 55 % (42-75); PLATELET COUNT 232 x10^3/uL (130-400); RED BLOOD COUNT 4.34 x10^6/uL (3.82-5.3); RED CELL DISTRIBUTION WIDTH 13.8 % (9.6-15.2)
[2017-08-31 16:12] LABS: ANION GAP 8 mmol/L (5-15); CALCIUM 9.2 mg/dL (8.5-10.1); CHLORIDE 101 mmol/L (98-107); CREATININE 1.33 mg/dL (0.55-1.02)
[2017-08-31 16:34] LABS: ACETAMINOPHEN < 2 mcg/mL (10-30)
[2017-08-31 16:42] LABS: AMPHETAMINE SCREEN, URINE Negative (Negative); CANNABINOID SCREEN, URINE Negative (Negative); COCAINE SCREEN, URINE Negative (Negative); METHADONE SCREEN, URINE Negative (Negative); OPIATE SCREEN, URINE Negative (Negative)
[2017-08-31 16:48] LABS: BARBITURATE SCREEN, URINE Negative (Negative); BENZODIAZEPINE SCREEN, URINE Negative (Negative)
[2017-08-31] MEDS ORDERED: LISI2.5T PO (17:06)
[2017-08-31] MEDS ORDERED: AMLO10TA2 PO (17:07)
[2017-08-31] MEDS: metFORMIN 500 MG TABLET PO SCH (20:10)
[2017-08-31] MEDS ORDERED: ONDANSETRON ODT 4 MG PO PRN (20:30)
[2017-08-31] MEDS ORDERED: ACETAMINOPHEN 325 MG TABLET PO PRN (20:30)
[2017-08-31] MEDS ORDERED: AMLODIPINE 5 MG TABLET ONE (20:38)
[2017-08-31] MEDS ORDERED: INSULIN REGULAR 100 UNITS/ML, 3ML VIAL ONE (20:41)
[2017-08-31] MEDS: INSULIN REGULAR 100 UNITS/ML, 3ML VIAL SQ-INSULIN SCH (20:49)
[2017-08-31] MEDS: OXCARBAZEPINE 300MG TABLET PO SCH (20:49)
[2017-08-31] MEDS: AMLODIPINE 5 MG TABLET PO SCH (20:50)
[2017-08-31] MEDS ORDERED: TEMPLATE NON-FORMULARY MED. (Lisinopril** 2.5 MG) PO SCH (21:00)
[2017-08-31] MEDS ORDERED: METOPROLOL TARTRATE 25 MG TABLET PO SCH (21:00)
[2017-09-01 06:31] LABS: MICROSCOPIC AUTO
[2017-09-01] MEDS ORDERED: AMLODIPINE 5 MG TABLET ONE ×2 (07:39→20:11)
[2017-09-01] MEDS ORDERED: INSULIN REGULAR 100 UNITS/ML, 3ML VIAL ONE ×3 (07:40→21:35)
[2017-09-01] MEDS: AMLODIPINE 5 MG TABLET PO SCH ×2 (07:43→21:37)
[2017-09-01] MEDS: FLUOXETINE HCL 90 MG HOMEMEDPO SCH (07:52)
[2017-09-01] MEDS: INSULIN REGULAR 100 UNITS/ML, 3ML VIAL SQ-INSULIN SCH ×4 (07:55→21:00)
[2017-09-01] MEDS ORDERED: HYDROCHLOROTHIAZIDE 12.5 MG CAPSULE PO SCH (09:00)
[2017-09-01] MEDS: metFORMIN 500 MG TABLET PO SCH ×2 (11:18→21:37)
[2017-09-01] MEDS: OXCARBAZEPINE 300MG TABLET PO SCH ×2 (11:18→21:37)
[2017-09-01] MEDS ORDERED: LORazepam 1MG TABLET ONE (16:10)
[2017-09-01] MEDS: LORazepam 1MG TABLET PO PRN (16:12)
[2017-09-01] MEDS ORDERED: LISINOPRIL 20 MG TABLET ONE (17:55)
[2017-09-01] MEDS ORDERED: HALOPERIDOL 5 MG/ML ONE (17:55)
[2017-09-01] MEDS: LISINOPRIL 10 MG TABLET PO SCH (18:06)
[2017-09-01] MEDS: HALOPERIDOL 5 MG/ML IM PRN (18:07)
[2017-09-02] MEDS: INSULIN REGULAR 100 UNITS/ML, 3ML VIAL SQ-INSULIN SCH ×4 (07:00→21:52)
[2017-09-02] MEDS ORDERED: LISINOPRIL 20 MG TABLET ONE (07:53)
[2017-09-02] MEDS ORDERED: AMLODIPINE 5 MG TABLET ONE (07:54)
[2017-09-02] MEDS: OXCARBAZEPINE 300MG TABLET PO SCH ×2 (08:45→21:39)
[2017-09-02] MEDS: AMLODIPINE 5 MG TABLET PO SCH ×2 (08:45→21:39)
[2017-09-02] MEDS: LISINOPRIL 10 MG TABLET PO SCH (08:45)
[2017-09-02] MEDS: metFORMIN 500 MG TABLET PO SCH ×2 (08:45→21:39)
[2017-09-02] MEDS: FLUOXETINE HCL 90 MG HOMEMEDPO SCH (08:45)
[2017-09-02] MEDS ORDERED: HALOPERIDOL 5 MG/ML ONE (09:18)
[2017-09-02] MEDS: HALOPERIDOL 5 MG/ML IM PRN (13:02)
[2017-09-02 13:46] LABS: ALANINE AMINOTRANSFERASE 33 U/L (12-78); ALBUMIN 2.9 g/dL (3.4-5.0); ANION GAP 9 mmol/L (5-15); CALCIUM 8.6 mg/dL (8.5-10.1); CHLORIDE 102 mmol/L (98-107)
[2017-09-02 13:49] LABS: ALKALINE PHOSPHATASE 84 U/L (45-117); BILIRUBIN,TOTAL 0.2 mg/dL (0.2-1.0); CREATININE 1.28 mg/dL (0.55-1.02); TOTAL PROTEIN 6.4 g/dL (6.4-8.2)
[2017-09-03 01:10] VITALS: BP 144/83
[2017-09-03] MEDS: TRAZODONE 50MG TABLET PO PRN ×2 (01:13→20:31)
[2017-09-03] MEDS: INSULIN REGULAR 100 UNITS/ML, 3ML VIAL SQ-INSULIN SCH ×4 (07:00→20:30)
[2017-09-03 07:38] VITALS: BP 137/84
[2017-09-03] MEDS: AMLODIPINE 5 MG TABLET PO SCH ×2 (08:42→20:21)
[2017-09-03] MEDS: LISINOPRIL 10 MG TABLET PO SCH (08:42)
[2017-09-03] MEDS: OXCARBAZEPINE 300MG TABLET PO SCH ×2 (08:42→21:00)
[2017-09-03] MEDS: metFORMIN 500 MG TABLET PO SCH ×2 (08:42→20:19)
[2017-09-03] MEDS: FLUOXETINE HCL 90 MG HOMEMEDPO SCH (08:50)
[2017-09-03] MEDS: LORazepam 1MG TABLET PO PRN (13:03)
[2017-09-03 20:02] VITALS: BP 158/93
[2017-09-04 07:35] VITALS: BP 143/80
[2017-09-04] MEDS: OXCARBAZEPINE 300MG TABLET PO SCH ×2 (08:21→21:01)
[2017-09-04] MEDS: metFORMIN 500 MG TABLET PO SCH ×2 (08:21→21:01)
[2017-09-04] MEDS: LISINOPRIL 10 MG TABLET PO SCH (08:22)
[2017-09-04] MEDS: INSULIN REGULAR 100 UNITS/ML, 3ML VIAL SQ-INSULIN SCH ×4 (08:24→20:57)
[2017-09-04] MEDS: AMLODIPINE 5 MG TABLET PO SCH ×2 (08:26→21:01)
[2017-09-04] MEDS: FLUOXETINE HCL 90 MG HOMEMEDPO SCH (08:27)
[2017-09-04 10:55] VITALS: BP 138/81
[2017-09-04 19:35] VITALS: BP 135/81
[2017-09-04] MEDS: TRAZODONE 50MG TABLET PO PRN ×2 (21:01→23:48)
[2017-09-04 23:47] VITALS: BP 157/82
[2017-09-05] MEDS: LORazepam 1MG TABLET PO PRN ×2 (03:20→08:52)
[2017-09-05 07:32] VITALS: BP 129/75
[2017-09-05] MEDS: INSULIN REGULAR 100 UNITS/ML, 3ML VIAL SQ-INSULIN SCH ×4 (07:39→20:45)
[2017-09-05] MEDS: metFORMIN 500 MG TABLET PO SCH ×2 (08:17→20:32)
[2017-09-05] MEDS: OXCARBAZEPINE 300MG TABLET PO SCH ×2 (08:17→20:32)
[2017-09-05] MEDS: AMLODIPINE 5 MG TABLET PO SCH ×2 (08:17→20:32)
[2017-09-05] MEDS: LISINOPRIL 10 MG TABLET PO SCH (08:17)
[2017-09-05] MEDS: FLUOXETINE HCL 90 MG HOMEMEDPO SCH (08:32)
[2017-09-05] MEDS: FLUOXETINE HCL 20 MG CAPSULE PO SCH (11:26)
[2017-09-05] MEDS: HYDROXYZINE PAMOATE 25MG CAP PO PRN (18:21)
[2017-09-05 19:43] VITALS: BP 148/84
[2017-09-05] MEDS: TRAZODONE 50MG TABLET PO PRN (20:31)
[2017-09-05] MEDS: OLANZAPINE 10 MG TABLET PO SCH (20:32)
[2017-09-06 08:00] VITALS: BP 148/87
[2017-09-06] MEDS: INSULIN REGULAR 100 UNITS/ML, 3ML VIAL SQ-INSULIN SCH ×4 (08:11→21:00)
[2017-09-06] MEDS: OXCARBAZEPINE 300MG TABLET PO SCH ×2 (09:07→20:18)
[2017-09-06] MEDS: metFORMIN 500 MG TABLET PO SCH ×2 (09:07→20:19)
[2017-09-06] MEDS: LISINOPRIL 10 MG TABLET PO SCH (09:07)
[2017-09-06] MEDS: FLUOXETINE HCL 20 MG CAPSULE PO SCH (09:08)
[2017-09-06] MEDS: AMLODIPINE 5 MG TABLET PO SCH ×2 (09:08→20:18)
[2017-09-06] MEDS: HYDROXYZINE PAMOATE 25MG CAP PO PRN ×2 (09:24→17:06)
[2017-09-06] MEDS: SIMETHICONE 80 MG CHEW TAB PO PRN (17:10)
[2017-09-06 19:55] VITALS: BP 132/86
[2017-09-06] MEDS: OLANZAPINE 10 MG TABLET PO SCH (20:18)
[2017-09-06] MEDS: TRAZODONE 50MG TABLET PO PRN (20:19)
[2017-09-07] MEDS: INSULIN REGULAR 100 UNITS/ML, 3ML VIAL SQ-INSULIN SCH ×4 (07:00→20:27)
[2017-09-07 07:31] VITALS: BP 152/83
[2017-09-07] MEDS: AMLODIPINE 5 MG TABLET PO SCH ×2 (09:18→20:28)
[2017-09-07] MEDS: metFORMIN 500 MG TABLET PO SCH ×2 (09:18→20:27)
[2017-09-07] MEDS: FLUOXETINE HCL 20 MG CAPSULE PO SCH (09:18)
[2017-09-07] MEDS: LISINOPRIL 10 MG TABLET PO SCH (09:18)
[2017-09-07] MEDS: OXCARBAZEPINE 300MG TABLET PO SCH ×2 (09:19→20:28)
[2017-09-07] MEDS: HYDROXYZINE PAMOATE 25MG CAP PO PRN (14:52)
[2017-09-07] MEDS: SIMETHICONE 80 MG CHEW TAB PO PRN (14:57)
[2017-09-07 19:43] VITALS: BP 156/89
[2017-09-07] MEDS: OLANZAPINE 10 MG TABLET PO SCH (20:32)
[2017-09-07] MEDS: TRAZODONE 50MG TABLET PO PRN (20:42)
[2017-09-08] MEDS: INSULIN REGULAR 100 UNITS/ML, 3ML VIAL SQ-INSULIN SCH ×4 (07:33→20:56)
[2017-09-08 07:45] VITALS: BP 124/85
[2017-09-08] MEDS: AMLODIPINE 5 MG TABLET PO SCH ×2 (08:39→20:56)
[2017-09-08] MEDS: FLUOXETINE HCL 20 MG CAPSULE PO SCH (08:39)
[2017-09-08] MEDS: LISINOPRIL 10 MG TABLET PO SCH (08:39)
[2017-09-08] MEDS: OXCARBAZEPINE 300MG TABLET PO SCH ×2 (08:39→20:57)
[2017-09-08] MEDS: metFORMIN 500 MG TABLET PO SCH ×2 (09:05→20:57)
[2017-09-08] MEDS: SIMETHICONE 80 MG CHEW TAB PO PRN (17:41)
[2017-09-08] MEDS: LABETALOL 100 MG TABLET PO SCH (18:16)
[2017-09-08 20:03] VITALS: BP 121/72
[2017-09-08] MEDS: OLANZAPINE 10 MG TABLET PO SCH (20:58)
[2017-09-08] MEDS: TRAZODONE 50MG TABLET PO PRN (21:03)
[2017-09-09 07:00] VITALS: BP 126/81
[2017-09-09] MEDS: INSULIN REGULAR 100 UNITS/ML, 3ML VIAL SQ-INSULIN SCH ×4 (07:46→21:00)
[2017-09-09] MEDS: LABETALOL 100 MG TABLET PO SCH ×2 (08:00→17:53)
[2017-09-09] MEDS: AMLODIPINE 5 MG TABLET PO SCH ×2 (08:00→20:25)
[2017-09-09] MEDS: FLUOXETINE HCL 20 MG CAPSULE PO SCH (09:34)
[2017-09-09] MEDS: LISINOPRIL 10 MG TABLET PO SCH (09:34)
[2017-09-09] MEDS: metFORMIN 500 MG TABLET PO SCH ×2 (09:34→20:25)
[2017-09-09] MEDS: OXCARBAZEPINE 300MG TABLET PO SCH ×2 (09:35→20:25)
[2017-09-09] MEDS: QUETIAPINE 25MG TABLET PO PRN (15:33)
[2017-09-09 19:32] VITALS: BP 148/85
[2017-09-09] MEDS: QUETIAPINE 100MG TABLET PO SCH (20:25)
[2017-09-10] MEDS: INSULIN REGULAR 100 UNITS/ML, 3ML VIAL SQ-INSULIN SCH ×4 (07:35→20:26)
[2017-09-10 07:40] VITALS: BP 133/85
[2017-09-10] MEDS: FLUOXETINE HCL 20 MG CAPSULE PO SCH (08:22)
[2017-09-10] MEDS: metFORMIN 500 MG TABLET PO SCH ×2 (08:22→20:25)
[2017-09-10] MEDS: LISINOPRIL 10 MG TABLET PO SCH (08:22)
[2017-09-10] MEDS: AMLODIPINE 5 MG TABLET PO SCH ×2 (08:23→20:24)
[2017-09-10] MEDS: LABETALOL 100 MG TABLET PO SCH ×2 (08:23→18:09)
[2017-09-10] MEDS: OXCARBAZEPINE 300MG TABLET PO SCH ×2 (08:23→20:24)
[2017-09-10] MEDS: QUETIAPINE 25MG TABLET PO PRN (12:18)
[2017-09-10 19:38] VITALS: BP 158/82
[2017-09-10 19:39] VITALS: BP 157/90
[2017-09-10] MEDS: QUETIAPINE 100MG TABLET PO SCH (20:24)
[2017-09-11] MEDS: INSULIN REGULAR 100 UNITS/ML, 3ML VIAL SQ-INSULIN SCH ×4 (07:28→20:14)
[2017-09-11 08:05] VITALS: BP 174/91
[2017-09-11] MEDS: LABETALOL 100 MG TABLET PO SCH ×2 (08:14→18:00)
[2017-09-11] MEDS: FLUOXETINE HCL 20 MG CAPSULE PO SCH (08:14)
[2017-09-11] MEDS: LISINOPRIL 10 MG TABLET PO SCH (08:14)
[2017-09-11] MEDS: metFORMIN 500 MG TABLET PO SCH ×2 (08:15→20:11)
[2017-09-11] MEDS: AMLODIPINE 5 MG TABLET PO SCH ×2 (08:15→20:11)
[2017-09-11] MEDS: OXCARBAZEPINE 300MG TABLET PO SCH ×2 (08:17→20:11)
[2017-09-11 10:52] VITALS: BP 143/92
[2017-09-11] MEDS: LORazepam 1MG TABLET PO PRN (11:50)
[2017-09-11 19:47] VITALS: BP 159/93
[2017-09-11] MEDS: QUETIAPINE 100MG TABLET PO SCH (20:11)
[2017-09-12 08:00] VITALS: BP 140/83
[2017-09-12] MEDS: LABETALOL 100 MG TABLET PO SCH ×2 (08:00→18:00)
[2017-09-12] MEDS: metFORMIN 500 MG TABLET PO SCH ×2 (08:17→21:02)
[2017-09-12] MEDS: FLUOXETINE HCL 20 MG CAPSULE PO SCH (08:17)
[2017-09-12] MEDS: OXCARBAZEPINE 300MG TABLET PO SCH ×2 (08:18→21:02)
[2017-09-12] MEDS: LISINOPRIL 10 MG TABLET PO SCH (08:18)
[2017-09-12] MEDS: AMLODIPINE 5 MG TABLET PO SCH ×2 (08:19→21:02)
[2017-09-12] MEDS: INSULIN REGULAR 100 UNITS/ML, 3ML VIAL SQ-INSULIN SCH ×4 (08:20→21:04)
[2017-09-12] MEDS: QUETIAPINE 25MG TABLET PO PRN (11:06)
[2017-09-12] MEDS: LORazepam 1MG TABLET PO PRN (11:06)
[2017-09-12 18:29] VITALS: BP 161/94
[2017-09-12 19:40] VITALS: BP 143/96
[2017-09-12] MEDS: QUETIAPINE 100MG TABLET PO SCH (21:02)
== END 2017-09-13 01:15 ==
LOC: ED 17:32 → EDIP 18:45 → INTOOBSV 18:45 → 2N 09-03 00:55 → 3E 09-12 17:45
PROVIDERS: ADMIT Hospitalist; ATTEND Hospitalist
DX: R45.851 Suicidal ideations (principal); F43.10 Post-traumatic stress disorder, unspecified; I10 Essential (primary) hypertension; E11.9 Type 2 diabetes mellitus without complications; E86.9 Volume depletion, unspecified; E10.22 Type 1 diabetes mellitus with diabetic chronic kidney disease; E11.22 Type 2 diabetes mellitus with diabetic chronic kidney disease; I13.0 Hypertensive heart and chronic kidney disease with heart failure and stage 1 through stage 4 chronic kidney disease, or unspecified chronic kidney disease; N18.3 Chronic kidney disease, stage 3 (moderate); I50.9 Heart failure, unspecified; J44.9 Chronic obstructive pulmonary disease, unspecified; I25.10 Atherosclerotic heart disease of native coronary artery without angina pectoris; I21.9 Acute myocardial infarction, unspecified; I25.2 Old myocardial infarction; F33.2 Major depressive disorder, recurrent severe without psychotic features; F31.9 Bipolar disorder, unspecified; F10.10 Alcohol abuse, uncomplicated; E44.1 Mild protein-calorie malnutrition; F15.20 Other stimulant dependence, uncomplicated; F43.21 Adjustment disorder with depressed mood; G47.00 Insomnia, unspecified; Z91.14 Patient's other noncompliance with medication regimen; Z79.4 Long term (current) use of insulin; Z91.5 Personal history of self-harm
CPT/HCPCS: 36415; 80048; 80053; 80307; 80329; 81001; 82962; 84703; 85025; 96372; 99285; G0378; J1630; J1815; G0480

== ENCOUNTER 2018-04-27 02:28 | Observation (INO) | payer MEDICAID ==
[~2018-04-27] VITALS: Ht 162.6 cm; Wt 75.8 kg
[~2018-04-27 02:28] MED LIST changes: +AMLO10TA6 PO; -AMLO5TAB2 PO; +AMLO5TAB7 PO; +ASPI-621 PO; +ATEN25TA PO; +CARV12.543 PO; +DIVA-59 PO; -DIVA250T6 PO; +FLUO20CA8 PO; +FLUO90CA5 PO; +HYDR-3343 PO; +HYDR12.53 PO; +ISOS60TA36 PO; +LISI2.5T PO; -METF10002 PO; +METF10007 PO; +METF500T17 PO; -METF500T4 PO; -OXCA300T PO; +OXCA300T19 PO; +TRAZ-136 PO; +TRAZ-137 PO; -TRAZ100T15 PO
[2018-04-27] MEDS ORDERED: SODIUM CHLORIDE FLUSH 10ML SYR IVF ONE (03:00)
[2018-04-27] MEDS ORDERED: NITROGLYCERIN OINT 2%, 1GM TP ONE ×2 (03:00→03:02)
[2018-04-27] MEDS ORDERED: LORazepam 2 MG/ML, 1ML IVPush ONE (03:00)
[2018-04-27] MEDS ORDERED: LABETALOL 5MG/ML, 20ML IVPush ONE (03:00)
[2018-04-27] MEDS ORDERED: LABETALOL 5MG/ML, 20ML ONE (03:02)
[2018-04-27] MEDS ORDERED: LORazepam 2 MG/ML, 1ML ONE (03:03)
[2018-04-27 03:14] LABS: BASOPHILS # (AUTO) 0.08 x10^3/uL (0-0.1); BASOPHILS % (AUTO) 1 % (0-1); EOSINOPHILS % (AUTO) 2 % (1-7); LYMPHOCYTES # (AUTO) 3.21 x10^3/uL (1-3.4); LYMPHOCYTES % (AUTO) 30 % (22-44); MD NO; MEAN CORPUSCULAR HEMOGLOBIN 31.5 pg (27.0-34.8); MEAN CORPUSCULAR HGB CONC 33.3 g/dL (32.4-35.8); MEAN CORPUSCULAR VOLUME 94.7 fL (80-100); MEAN PLATELET VOLUME 11.2 fL (7.4-10.4); MONOCYTES # (AUTO) 0.92 x10^3/uL (0.2-0.8); MONOCYTES % (AUTO) 9 % (2-9); NEUTROPHILS # (AUTO) 6.36 x10^3/uL (1.8-6.8); NEUTROPHILS % (AUTO) 59 % (42-75); PLATELET COUNT 230 x10^3/uL (130-400); RED BLOOD COUNT 4.51 x10^6/uL (3.82-5.3); RED CELL DISTRIBUTION WIDTH 14.5 % (9.6-15.2)
[2018-04-27 03:26] LABS: ALANINE AMINOTRANSFERASE 66 U/L (12-78); ALBUMIN 3.7 g/dL (3.4-5.0); ANION GAP 10 mmol/L (5-15); CALCIUM 8.6 mg/dL (8.5-10.1); CHLORIDE 107 mmol/L (98-107); CREATININE 1.59 mg/dL (0.55-1.02)
[2018-04-27 03:30] LABS: ALKALINE PHOSPHATASE 111 U/L (45-117); BILIRUBIN,TOTAL 0.3 mg/dL (0.2-1.0); TOTAL PROTEIN 7.9 g/dL (6.4-8.2)
[2018-04-27 03:39] LABS: TROPONIN I 0.346 ng/mL (0.000-0.045)
[2018-04-27] MEDS ORDERED: ASPIRIN 325 MG TABLET PO ONE (04:00)
[2018-04-27] MEDS ORDERED: ASPIRIN 325 MG TABLET EC ONE (04:18)
[2018-04-27] MEDS ORDERED: ASPIRIN 325 MG TABLET ONE (04:21)
[2018-04-27 05:04] VITALS: BP 178/95
[2018-04-27] MEDS ORDERED: LISI-420 PO (05:04)
[2018-04-27] MEDS ORDERED: ALPR0.5T PO (05:04)
[2018-04-27] MEDS ORDERED: TRAZ-137 PO (05:04)
[2018-04-27] MEDS ORDERED: POLYETHYLENE GLYCOL 17 GM PACKET PO PRN (05:30)
[2018-04-27] MEDS ORDERED: NITROGLYCERIN 0.4 MG BOTTLE (25 TABS) SL PRN (05:30)
[2018-04-27] MEDS: NICOTINE 7 MG/24 HR PATCH.TD24 TD SCH (05:30)
[2018-04-27] MEDS ORDERED: GABAPENTIN 300 MG CAPSULE PO PRN (05:30)
[2018-04-27] MEDS ORDERED: ONDANSETRON 2MG/ML, 2ML IVPush PRN (05:30)
[2018-04-27] MEDS ORDERED: ONDANSETRON ODT 4 MG PO PRN (05:30)
[2018-04-27] MEDS ORDERED: LABETALOL 5MG/ML, 20ML IVPush PRN (05:30)
[2018-04-27] MEDS ORDERED: BISACODYL 10 MG SUPP PR PRN (05:30)
[2018-04-27] MEDS ORDERED: PROMETHAZINE 25 MG/ML, 1ML IM PRN (05:30)
[2018-04-27] MEDS ORDERED: hydrALAzine 20 MG/ML, 1ML IVPush PRN (05:30)
[2018-04-27] MEDS ORDERED: DOCUSATE 100 MG CAPSULE PO PRN (05:30)
[2018-04-27] MEDS: ASPIRIN 325 MG TABLET EC PO SCH (05:41)
[2018-04-27] MEDS: CARVEDILOL 6.25 MG TABLET PO SCH ×2 (05:41→22:01)
[2018-04-27] MEDS: HEPARIN 5,000 UNITS/ML, 1ML SQ SCH ×3 (05:41→22:02)
[2018-04-27 06:47] LABS: FREE T4 (FREE THYROXINE) 1.15 ng/dL (0.76-1.46); THYROID STIMULATING HORMONE 3.52 mIU/L (0.358-3.740)
[2018-04-27 07:00] VITALS: BP 150/72
[2018-04-27 07:10] LABS: HEMOGLOBIN A1C 8.1 % (4.2-6.3)
[2018-04-27] MEDS: INSULIN LISPRO 100 UNITS/ML, PEN SQ-INSULIN SCH ×4 (08:49→21:00)
[2018-04-27] MEDS: AMLODIPINE 5 MG TABLET PO SCH (08:49)
[2018-04-27 09:21] LABS: TROPONIN I 0.353 ng/mL (0.000-0.045)
[2018-04-27 12:07] VITALS: BP 155/90
[2018-04-27 14:37] LABS: TROPONIN I 0.331 ng/mL (0.000-0.045)
[2018-04-27 19:24] VITALS: BP 155/88
[2018-04-27] MEDS ORDERED: ATORVASTATIN 40 MG TABLET PO SCH (21:00)
[2018-04-27] MEDS ORDERED: TRAZODONE 100MG TABLET PO SCH (22:00)
[2018-04-27 23:52] LABS: CULTURE INDICATED? YES; MICROSCOPIC INDICATED
[2018-04-28 02:59] VITALS: BP 165/100
[2018-04-28 03:39] VITALS: BP 176/92
[2018-04-28 04:58] VITALS: BP 154/74
[2018-04-28] MEDS: ASPIRIN 325 MG TABLET EC PO SCH (05:28)
[2018-04-28] MEDS: HEPARIN 5,000 UNITS/ML, 1ML SQ SCH (05:28)
[2018-04-28] MEDS: CARVEDILOL 6.25 MG TABLET PO SCH (05:28)
[2018-04-28] MEDS: NICOTINE 7 MG/24 HR PATCH.TD24 TD SCH (05:28)
[2018-04-28 05:34] LABS: BASOPHILS # (AUTO) 0.05 x10^3/uL (0-0.1); BASOPHILS % (AUTO) 1 % (0-1); EOSINOPHILS # (AUTO) 0.28 x10^3/uL (0-0.4); EOSINOPHILS % (AUTO) 4 % (1-7); LYMPHOCYTES # (AUTO) 3.57 x10^3/uL (1-3.4); LYMPHOCYTES % (AUTO) 46 % (22-44); MD NO; MEAN CORPUSCULAR HGB CONC 33.9 g/dL (32.4-35.8); MEAN CORPUSCULAR VOLUME 94.3 fL (80-100); MEAN PLATELET VOLUME 11.5 fL (7.4-10.4); MONOCYTES # (AUTO) 0.62 x10^3/uL (0.2-0.8); MONOCYTES % (AUTO) 8 % (2-9); NEUTROPHILS # (AUTO) 3.31 x10^3/uL (1.8-6.8); NEUTROPHILS % (AUTO) 42 % (42-75); PLATELET COUNT 196 x10^3/uL (130-400); RED BLOOD COUNT 4.26 x10^6/uL (3.82-5.3); RED CELL DISTRIBUTION WIDTH 14.6 % (9.6-15.2)
[2018-04-28 05:48] LABS: CHLORIDE 108 mmol/L (98-107)
[2018-04-28 05:56] LABS: ALANINE AMINOTRANSFERASE 44 U/L (12-78); ALBUMIN 2.9 g/dL (3.4-5.0); ALKALINE PHOSPHATASE 96 U/L (45-117); ANION GAP 10 mmol/L (5-15); BILIRUBIN,TOTAL 0.2 mg/dL (0.2-1.0); CALCIUM 8.4 mg/dL (8.5-10.1); CHOL/HDL RATIO 7.7; CHOLESTEROL, TOTAL 216 mg/dL (140-239); CREATININE 1.36 mg/dL (0.55-1.02); HDL CHOL % 13 % (28-40); HDL CHOLESTEROL (DIRECT) 28 mg/dL (40-60); TOTAL PROTEIN 6.7 g/dL (6.4-8.2); TRIGLYCERIDES 481 mg/dL (50-200)
[2018-04-28 07:05] VITALS: BP 155/84
[2018-04-28] MEDS: INSULIN LISPRO 100 UNITS/ML, PEN SQ-INSULIN SCH ×2 (08:24→11:00)
[2018-04-28] MEDS: AMLODIPINE 5 MG TABLET PO SCH (08:24)
[2018-04-28] MEDS ORDERED: AMLO5TAB7 PO (09:50)
[2018-04-28] MEDS ORDERED: CARV12.543 PO (09:50)
[2018-04-28] MEDS ORDERED: ATOR80TA PO (09:50)
[2018-04-28] MEDS ORDERED: ISOS60TA36 PO (09:50)
== END 2018-04-28 11:46 | disposition home or self-care (01) ==
LOC: ED 03:51 → INTOOBSV 03:52 → EDIP 03:52 → 4WST 04:49 → DCLOUNGE 04-28 11:46
PROVIDERS: ADMIT Internal Medicine; ATTEND Internal Medicine
DX: I16.0 Hypertensive urgency (principal); N17.0 Acute kidney failure with tubular necrosis; F15.10 Other stimulant abuse, uncomplicated; F17.210 Nicotine dependence, cigarettes, uncomplicated; F39 Unspecified mood [affective] disorder; F10.10 Alcohol abuse, uncomplicated; E78.5 Hyperlipidemia, unspecified; E11.9 Type 2 diabetes mellitus without complications; I10 Essential (primary) hypertension; I25.2 Old myocardial infarction; Z86.73 Personal history of transient ischemic attack (TIA), and cerebral infarction without residual deficits
CPT/HCPCS: 36415; 70450; 70551; 71045; 80053; 80061; 81001; 82962; 83036; 83735; 83880; 84439; 84443; 84484; 85025; 87086; 90471; 90656; 93005; 96372; 96374; 96375; 99291; G0378; J0360; J1644; J1815; J2060

== ENCOUNTER 2021-03-08 06:47 | Emergency (ER) | payer MEDICAID ==
[~2021-03-08] VITALS: Ht 165.1 cm; Wt 68.9 kg
[~2021-03-08 06:47] MED LIST changes: +ALPR0.5T PO; +AMLO-150 PO; +AMLO-211 PO; -AMLO10TA6 PO; -AMLO5TAB7 PO; -ASPI-621 PO; +ASPI81TA45 PO; +ATOR20TA37 PO; -ATOR20TA9 PO; -CLON0.1T PO; +CLON0.1T22 PO; +FLUO20CA23 PO; -FLUO20CA8 PO; +HYDR12.517 PO; -HYDR12.53 PO; -LISI2.5T PO; +LISI2.5T12 PO; +LISI20TA21 PO; -LISI40TA PO; +LISI40TA9 PO; +LORA-59 PO; -LORA10TA62 PO; +SULF-23 PO; -SULF1TAB24 PO; -TRAZ-136 PO; -TRAZ-137 PO; +TRAZ-175 PO; +TRAZ50TA66 PO
--- NOTE | 2021-03-08 07:05 | NUR ---
SI MEAL TRAY ORDERED.
--- NOTE | 2021-03-08 07:25 | NUR ---
DIGITAL HARDWARE DESIGN ENGINEER: PT SITTING IN FRONT OF NURSES STATION.
[2021-03-08 07:47] LABS: BASOPHILS % (AUTO) 1 % (0-1); EOSINOPHILS % (AUTO) 2 % (1-7); LYMPHOCYTES % (AUTO) 36 % (22-44); MEAN CORPUSCULAR HEMOGLOBIN 29.9 pg (27.0-34.8); MEAN CORPUSCULAR HGB CONC 33.3 g/dL (32.4-35.8); MEAN PLATELET VOLUME 9.7 fL (7.4-10.4); MONOCYTES % (AUTO) 9 % (2-9); NEUTROPHILS % (AUTO) 51 % (42-75); PLATELET COUNT 281 x10^3/uL (130-400); RED BLOOD COUNT 4.89 x10^6/uL (3.82-5.3); RED CELL DISTRIBUTION WIDTH 14.5 % (9.6-15.2)
[2021-03-08 07:53] LABS: ALANINE AMINOTRANSFERASE 49 U/L (12-78); ALBUMIN 3.2 g/dL (3.4-5.0); ANION GAP 9 mmol/L (5-15); CALCIUM 8.5 mg/dL (8.5-10.1); CHLORIDE 105 mmol/L (98-107); CREATININE 1.29 mg/dL (0.55-1.02); SALICYLATE LEVEL 4.2 mg/dL (2.8-20.0)
[2021-03-08 07:55] LABS: ALKALINE PHOSPHATASE 116 U/L (45-117); BILIRUBIN,TOTAL 0.4 mg/dL (0.2-1.0); TOTAL PROTEIN 7.4 g/dL (6.4-8.2)
--- NOTE | 2021-03-08 08:22 | NUR ---
CADDY MASTER: PT EATING BREAKFAST, PROVIDED WITH WARM BLANKET. COOPERATIVE WITH CARE. PT SITTING IN FRONT OF CHARGE DESK.
--- NOTE | 2021-03-08 08:27 | NUR ---
MEAL TRAY PROVIDED AND PT ATE 100%
--- NOTE | 2021-03-08 08:51 | NUR ---
COKE CRANE OPERATOR: PT TO ROOM, GAIT STEADY
--- NOTE | 2021-03-08 09:23 | NUR ---
PT C/O SI. PT'S PLAN IS TO TAKE PILLS. PT HAS PREVIOUS ATEMPTS OF OD. PT STATES THE FEELINGS STARTED 2 DAYS AGO ON THE ANNIVERSARY OF HER FRIEND'S . PT DENIES PHYSICAL COMPLAINTS. VSS. PT PLACED IN SECURE ROOM WITH BELINGINGS PLACED IN SECURE LOCKER. SITTER OUTSIDE ROOM IN DIRECT LINE OF SIGHT. PT'S MOM IS VARSHA MAHONEY. PT STATES ITS OK TO LET HER KNOW WHATS GOING ON IF SHE CALLS. [phone].
--- NOTE | 2021-03-08 10:50 | NUR ---
PT PLACED ON L2K AT THIS TIME. WHEN MED CLEARED, [facility]X PACK[facility])
[2021-03-08] MEDS ORDERED: FLUOXETINE HCL 20 MG CAPSULE PO SCH (11:00)
[2021-03-08] MEDS ORDERED: METOPROLOL TARTRATE 25 MG TAB PO ONE (11:00)
[2021-03-08] MEDS ORDERED: LISINOPRIL 20 MG TABLET PO ONE (11:00)
[2021-03-08] MEDS ORDERED: AMLODIPINE 5 MG TABLET PO ONE (11:00)
[2021-03-08] MEDS ORDERED: LISINOPRIL 20 MG TABLET ONE (11:47)
[2021-03-08] MEDS ORDERED: AMLODIPINE 5 MG TABLET ONE (11:47)
[2021-03-08] MEDS ORDERED: METOPROLOL TARTRATE 25 MG TAB ONE (11:48)
[2021-03-08] MEDS ORDERED: FLUOXETINE HCL 20 MG CAPSULE ONE (11:48)
--- NOTE | 2021-03-08 12:01 | NUR ---
pt asleep in [facility]. pt aroused and medicated per mar. urine tubed to lab at this time.
[2021-03-08 12:23] LABS: MICROSCOPIC INDICATED
[2021-03-08 12:47] LABS: HCG UR SG 1.022 (1.003-1.030)
[2021-03-08 13:02] LABS: AMPHETAMINE SCREEN, URINE Positive (Negative); BARBITURATE SCREEN, URINE Negative (Negative); BENZODIAZEPINE SCREEN, URINE Negative (Negative); CANNABINOID SCREEN, URINE Negative (Negative); COCAINE SCREEN, URINE Negative (Negative); METHADONE SCREEN, URINE Negative (Negative); OPIATE SCREEN, URINE Negative (Negative)
--- NOTE | 2021-03-08 13:07 | NUR ---
PACKET FAXED TO [facility]. PT INSURANCE NOT ELIGIBLE FOR [facility]
[2021-03-08] MEDS ORDERED: FOSFOMYCIN 3 GM PACKET PO ONE (13:30)
--- NOTE | 2021-03-08 13:33 | NUR ---
REPORT OF PT TO CASSANDRA ZAMARRIPA. ALL QUESTIONS ANSWERED.
[2021-03-08] MEDS ORDERED: FOSFOMYCIN 3 GM PACKET ONE (13:52)
--- NOTE | 2021-03-08 13:58 | NUR ---
[facility] ACCEPTED PATIENT. DR. ORTEGA IS THE ACCEPTING DOCTOR FOR 3PM.
--- NOTE | 2021-03-08 14:41 | NUR ---
PT PROVIDED W/ SAFETY DIET TRAY.
--- NOTE | 2021-03-08 14:50 | NUR ---
EPORT FROM MARILOU RN WITH ASSESSMENT PATIENT DENIES ANY ACUTE NEEDS EATING LUNCH UPDATED ON ESTIMATED POC-TO TRANSFER TO [facility] IF NO PROBLEMS ARISE SHORTLY REPEAT BLOOD PRESSURE OF 155/87
[2021-03-08 15:07] VITALS: BP 155/87
--- NOTE | 2021-03-08 17:19 | NUR ---
TRANPSORT YET TO ARRIVE. THROUGHPUT RN MADE AWARE. ROOM REMAINS CONTROLLED WITH PSYCHIATRIC PRECAUTIONS SITTER WITHIN DIRECT EYELINE DINNER ORDERED
[2021-03-08] MEDS ORDERED: CARVEDILOL 12.5 MG TABLET PO ONE (18:00)
[2021-03-08] MEDS ORDERED: TRAZODONE 150MG TABLET PO SCH (21:00)
[2021-03-08] MEDS ORDERED: OLANZAPINE 10 MG TABLET PO SCH (21:00)
== END 2021-03-08 18:05 ==
LOC: ED 11:35
DX: R45.851 Suicidal ideations (principal); F33.9 Major depressive disorder, recurrent, unspecified; I10 Essential (primary) hypertension; F15.10 Other stimulant abuse, uncomplicated; Z72.9 Problem related to lifestyle, unspecified; E11.65 Type 2 diabetes mellitus with hyperglycemia; I25.2 Old myocardial infarction; Z86.73 Personal history of transient ischemic attack (TIA), and cerebral infarction without residual deficits
CPT/HCPCS: 36415; 80053; 80299; 80307; 80320; 80329; 81001; 81025; 85025; 87086; 99285; G0480